=== PATIENT | female | born 1995 | race Caucasian/White ===

== ENCOUNTER 2018-09-23 07:53 | Inpatient (IN) | payer MEDICAID ==
[~2018-09-23] VITALS: Ht 177.8 cm; Wt 113.6 kg
[2018-09-23 18:51] VITALS: BP 116/59; PULSE 88; TEMP 98.1
[2018-09-23] MEDS ORDERED: PRENATAL MVI PO (19:40)
[2018-09-23 20:41] LABS: BASO % 0.2 % (0.0-2.0); EOS # 0.1 (0.0-0.7); EOS % 1.3 % (0-4.0); GRAN # 7.7 (1.4-6.5); GRAN % 75.9 % (42.2-75.2); HEMATOCRIT 37.1 % (37.0-47.0); HEMOGLOBIN 12.8 g/dl (12.5-16.0); LYMPH # 1.3 (1.2-3.4); LYMPH % 12.8 % (20.0-51.0); MEAN CELL VOLUME 91 fl (80.0-100.0); MEAN CORPUSCULAR HEMOGLOBIN 32 pg (27.0-31.0); MEAN CORPUSCULAR HGB CONC 35 g/dl (33.0-37.0); MEAN PLATELET VOLUME 12.9 fl (7.4-10.4); MONO # 0.9 (0.1-0.6); MONO % 9.1 % (1.7-9.3); PLATELET COUNT 133 K/mm3 (130-400); RED BLOOD COUNT 4.06 M/mm3 (4.10-5.30); REDCELL DISTRIBUTION WIDTH-CV 13.2 % (11.5-14.5)
[2018-09-23 21:00] VITALS: BP 121/62; PULSE 81
[2018-09-23 21:30] VITALS: BP 109/67; PULSE 80; TEMP 97.6
[2018-09-23 22:00] VITALS: BP 121/61; PULSE 75
[2018-09-23 22:30] VITALS: BP 103/53; PULSE 82
[2018-09-23 23:00] VITALS: TEMP 98.1
[2018-09-24] VITALS (45 sets, daily range): BP systolic 93–138; BP diastolic 50–76; PULSE 62–113; TEMP 98.2–99.5
[2018-09-25] VITALS: BP 118/60; PULSE 89; TEMP 98.5
[2018-09-25 04:00] VITALS: BP 120/58; PULSE 80; TEMP 98
[2018-09-25 06:20] LABS: HEMOGLOBIN 12.2 g/dl (12.5-16.0)
[2018-09-25 06:24] LABS: HEMATOCRIT 35.6 % (37.0-47.0)
[2018-09-25 08:25] VITALS: BP 126/72; PULSE 78; TEMP 97.2
[2018-09-25] MEDS ORDERED: MOTRIN 800800 MG/TAB PO (11:20)
[2018-09-25] MEDS ORDERED: PERCOCET 325 MG1 TA2 PO (11:21)
[2018-09-25 13:30] VITALS: BP 135/67; PULSE 89
[2018-09-25 17:00] VITALS: BP 128/63; PULSE 83; TEMP 97.8
== END 2018-09-25 19:30 | disposition home or self-care (01) | DRG 807 ==
LOC: LDR 07:53 → OB 18:59 → LDR 18:59 → OB 09-24 23:08
PROVIDERS: Obstetrics & Gynecology
PROC: 3E0P7VZ Introduction of Hormone into Female Reproductive, Via Natural or Artificial Opening (ICD-10-PCS; 2018-09-23)
PROC: 10E0XZZ Delivery of Products of Conception, External Approach (ICD-10-PCS; principal; 2018-09-24)
PROC: 0KQM0ZZ Repair Perineum Muscle, Open Approach (ICD-10-PCS; 2018-09-24)
PROC: 3E033VJ Introduction of Other Hormone into Peripheral Vein, Percutaneous Approach (ICD-10-PCS; 2018-09-24)
PROC: 10907ZC Drainage of Amniotic Fluid, Therapeutic from Products of Conception, Via Natural or Artificial Opening (ICD-10-PCS; 2018-09-24)
DX: O48.0 Post-term pregnancy (principal); Z37.0 Single live birth; Z3A.41 41 weeks gestation of pregnancy; O76 Abnormality in fetal heart rate and rhythm complicating labor and delivery; O77.0 Labor and delivery complicated by meconium in amniotic fluid; O70.1 Second degree perineal laceration during delivery
CPT/HCPCS: J2590; J7120

== ENCOUNTER → 2018-09-30 | Outpatient (CLI) | payer MEDICAID ==
[~2018-09-30] MED LIST: MOTRIN 800800 MG/TAB PO; PERCOCET 325 MG1 TA2 PO; PRENATAL MVI PO
--- NOTE | 2018-09-30 11:08 | NUR ---
Pt, Michaela Mckenzie, presents for outpatient consult with six day old baby girl, Kait Mckenzie, and her spouse, Jorge Luis. They are being seen because Kait is 14% below weight. Kait was born by on [birth year] and weighed 8# 14.7oz (4045 gms). She was seen at the doctor's office on 09/27/18 and reportedly weighed 7#15oz, and again today where her weight was 7# 10oz. They were refered for consult by Dr. Marino. The family reports Kait has nursed 11 times in the last 24 hours, some only a few minutes, some about 15 min. She has had 2 voids in the last 24 hours, and no bowel movement in 4 days. The last stool was described as meconium. Pt states her milk had increase 2 days ago; she pumped 3oz x2 for relief. At this time the breast are soft and swallows are not very consistent during the feeding. At this visit Kait weighs 7# 10.2oz (3464 gms). She is breastfed and has a total weight gain of 18gms. Pt states she has sore nipples with latching, techniques and tips reviewed but in general the latch appears normal. Supplement options were discussed, pt elects to try SNS. Family instructed and assisted with use of SNS. takes 24ml supplement. Reweigh after supplement feeding demonstrates a total gain of 44gms, so he had an additional transfer of 2 more ml. with SNS. POC: Breastfeed q 2-3 hours, supplement 60ml or more per feeding. Supplement method can be SNS or bottle. Follow with pumping x10 min after each feeding. Follow up scheduled for Tuesday, October 02, 2018 @ 1300. Questions invited and answered.
== END ==
LOC: LAC 09:09
DX: Z39.1 Encounter for care and examination of lactating mother (principal); Z71.89 Other specified counseling

== ENCOUNTER → 2018-10-02 | Outpatient (CLI) | payer MEDICAID ==
--- NOTE | 2018-10-02 14:07 | NUR ---
Pt, Michaela Mckenzie, presents for consult with 8 day old baby girl, Kait Mckenzie, and her spouse. They are being seen because Kait was 14% below weight, had decreased voids and stools, and pt's milk supply was low. Kait was born on [birth year] and weighed 8# 14.7oz (4045 gms). Two days ago she weighed 7# 10.2oz. They have followed the feeding plan advised at the consult and today Kait weighs 8# 4.2oz. Kait is now with a nipple shield and is supplemented 2oz EBM or formula after feedings. She has QS voids and stools now. Pt is pumping average 1oz after breastfeedings. Pt reports Kait requires waking for feedings, and needs about 20 min of coaxing before she eats well. She also needs encouragement to finish the bottle feedings. After at this consult Kait has a weight gain of 32gms. She is supplemented with 1oz formula by bottle. POC: continue 8 or more times per day. Decrease supplement after to 1oz unless Kait is demanding more. Goal is to have Kait wake more on her own and be more eager to breastfeed. Continue pumping and using EBM for supplement as available. Follow up: consult on Oct 08 at 1300.
== END ==
LOC: LAC 12:41
DX: Z39.1 Encounter for care and examination of lactating mother (principal); Z71.89 Other specified counseling

== ENCOUNTER → 2018-10-09 | Outpatient (CLI) | payer MEDICAID ==
--- NOTE | 2018-10-09 13:36 | NUR ---
Pt, Michaela Mckenzie, presents to outpatient follow up with 2 week old baby girl, Kait Mckenzie, and her Jorge Luis. They have been working with the for sore nipples, low weight gain and low milk supply. Please see previous consult notes for details. Kait weighed 8#14.7 oz at on 09/24/18; at six days of age she weighed 7#10.2oz; at 8 days of age she weighed 8#4oz. Today she weighs 9#0.1oz for a gain of 12oz in the last 7 days. Feedings have been at the breast with a nipple shield, followed with 1oz EBM by bottle. Pt pumps about 2oz after each . At this consult pt is assisted to breastfeed without the nipple shield, baby latches well, pt denies pain. After nursing bilaterally Kait has a weight gain of 2.4oz (68gms). POC: Breastfeed ad rudy 8 times daily, eliminate routine bottle supplements and pumping. May pump and bottle prn. Follow up: Pt and family relocating to [place] next week, advised to have weight check once they get settled. has one month appt. scheduled in [place]. Questions invited and answered.
== END ==
LOC: LAC 13:04
DX: Z39.1 Encounter for care and examination of lactating mother (principal); Z71.89 Other specified counseling